=== PATIENT | male | born 2000 | race Caucasian/White ===

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

== ENCOUNTER 2020-04-17 07:48 | Emergency (ER) | payer OTHER ==
[~2020-04-17] VITALS: Ht 180.3 cm; Wt 136.0 kg
[2020-04-17 09:45] VITALS: BP 148/59
== END 2020-04-17 09:52 | disposition home or self-care (01) | DRG 605 ==
LOC: ED 07:48
DX: S00.03XA Contusion of scalp, initial encounter (principal); S16.1XXA Strain of muscle, fascia and tendon at neck level, initial encounter; V48.5XXA Car driver injured in noncollision transport accident in traffic accident, initial encounter